=== PATIENT | male | born 1975 | race Caucasian/White ===

== ENCOUNTER 2016-08-19 06:41 | Observation (INO) | payer BC ==
[2016-08-19 08:03] LABS: ABSOLUTE LYMPHOCYTES (AUTO) 1.5 10^3/uL (0.5-4.7); ABSOLUTE MONOCYTES (AUTO) 0.8 10^3/uL (0.1-1.4); ABSOLUTE NEUT (AUTO) 6.6 10^3/uL (1.7-8.2); BASOPHILS % (AUTO) 0.3 % (0-2); EOSINOPHILS % (AUTO) 0.5 % (0-6); HEMATOCRIT 42.7 % (37.9-51.0); HEMOGLOBIN 14.9 g/dL (13.5-17.0); LYMPHOCYTES % (AUTO) 16.9 % (13-45); MEAN CORPUSCULAR HEMOGLOBIN 30.4 pg (27.0-33.4); MEAN CORPUSCULAR HGB CONC 34.8 g/dL (32.0-36.0); MEAN CORPUSCULAR VOLUME 87 fl (80-97); MONOCYTES % (AUTO) 9.1 % (3-13); RED BLOOD COUNT 4.89 10^6/uL (4.35-5.55); SEGMENTED NEUTROPHILS % (AUTO) 73.2 % (42-78); WHITE BLOOD COUNT 9.1 10^3/uL (4.0-10.5)
[2016-08-19 08:05] LABS: APPEARANCE,URINE CLEAR; BILIRUBIN,URINE NEGATIVE (NEGATIVE); GLUCOSE, URINE NEGATIVE (NEGATIVE); KETONES,URINE NEGATIVE (NEGATIVE); LEUKOCYTE ESTERASE,URINE NEGATIVE (NEGATIVE); NITRITE,URINE NEGATIVE (NEGATIVE); PROTEIN,URINE NEGATIVE (NEGATIVE); URINE SPECIFIC GRAVITY 1.016; UROBILINOGEN,URINE NEGATIVE mg/dL (<2.0)
[2016-08-19 08:16] LABS: ALANINE AMINOTRANSFERASE 50 U/L (21-72); ALBUMIN 4.7 g/dL (3.5-5.0); ALKALINE PHOSPHATASE 85 U/L (38-126); ANION GAP 15 (5-19); ASPARTATE AMINO TRANSFERASE 25 U/L (17-59); BILIRUBIN,DIRECT 0.4 mg/dL (0.0-0.4); BILIRUBIN,TOTAL 1.2 mg/dL (0.2-1.3); BLOOD UREA NITROGEN 15 mg/dL (7-20); CALCIUM 9.5 mg/dL (8.4-10.2); CARBON DIOXIDE 23 mmol/L (22-30); CHLORIDE 105 mmol/L (98-107); CREATININE RESULT 1.27 mg/dL (0.52-1.25); GLUCOSE 111 mg/dL (75-110); LIPASE 63.9 U/L (23-300); POTASSIUM 4.3 mmol/L (3.6-5.0); SODIUM 142.6 mmol/L (137-145); TOTAL PROTEIN 7.9 g/dL (6.3-8.2)
[2016-08-19] MEDS ORDERED: ONDANSETRON HCL INJ/PF 4 MG/2 ML SDV IV ONE (08:28)
[2016-08-19] MEDS ORDERED: NORMAL SALINE 500 ML IV ONE (08:28)
[2016-08-19] MEDS ORDERED: NORMAL SALINE 1000 ML 1,000 ML IV ONE (08:28)
--- NOTE | 2016-08-19 08:29 | ER Document Report ---
ED General - General Chief Complaint: Abdominal Pain Stated Complaint: ABDOMINAL PAIN TRAVEL OUTSIDE OF THE [place] IN LAST 30 DAYS: No - Related Data Allergies/Adverse Reactions: Sulfa (Sulfonamide Antibiotics) Allergy (Verified 08/19/16 08:16) Home Medications: Current Home Medications Citalopram Hydrobromide [Celexa 10 mg Tablet] 10 mg PO DAILY 08/19/16 [History] Past Medical History - Social History Smoking Status: Never Smoker Frequency of alcohol use: Social Drug Abuse: None Patient has suicidal ideation: No Patient has homicidal ideation: No Renal/ Medical History: Denies: Hx Peritoneal Dialysis Surgical Hx: Negative Physical Exam - Vital signs Vitals: Temp Pulse Resp BP Pulse Ox 97.9 F 101 H 18 123/84 97 08/19/16 06:44 08/19/16 06:44 08/19/16 06:44 08/19/16 06:44 08/19/16 06:44 Course - Re-evaluation Re-evalutation: 08/19/16 08:29 This coming right lower quadrant tenderness with rebound and voluntary guarding no obturator so asked sign. There is no blood in the urine patient states he has a kidney stone in the past does not feel like his kidney stones. Examination is concerning for possible acute appendicitis. Discussed with surgeon on-call recommends getting a CT scan this time with oral and IV contrast. - Vital Signs Vital signs: Temp Pulse Resp BP Pulse Ox 97.9 F 101 H 20 123/84 97 08/19/16 06:44 08/19/16 06:44 08/19/16 08:00 08/19/16 06:44 08/19/16 06:44 - Laboratory Result Diagrams: 08/19/16 07:42 08/19/16 07:42 Laboratory results interpreted by me: 08/19/16 07:42 Creatinine 1.27 H Glucose 111 H
[2016-08-19] MEDS ORDERED: GLYCOPYRROLATE INJ 0.4 MG/2 ML VIAL ONE (08:30)
[2016-08-19] MEDS ORDERED: NEOSTIGMINE METHYLSULFATE 10 MG/10 ML VIAL ONE (08:30)
[2016-08-19] MEDS ORDERED: METOCLOPRAMIDE HCL INJ/PF 10 MG/2 ML SDV ONE (08:30)
[2016-08-19] MEDS ORDERED: ROCURONIUM BROMIDE INJ 50 MG/5 ML VIAL IV ONE (08:30)
[2016-08-19] MEDS ORDERED: ONDANSETRON HCL INJ/PF 4 MG/2 ML SDV ONE (08:30)
[2016-08-19] MEDS ORDERED: SUCCINYLCHOLINE CHLORIDE INJ 200 MG/10 ML VIAL ONE (08:30)
--- NOTE | 2016-08-19 09:12 | ER Document Report ---
ED General - General Chief Complaint: Abdominal Pain Stated Complaint: ABDOMINAL PAIN TRAVEL OUTSIDE OF THE [place] IN LAST 30 DAYS: No - HPI Patient complains to provider of: right lower quadrant abdominal pain Notes: Patient coming in for evaluation of right lower quadrant abdominal pain. Patient states abdominal pain for last 3 days initially diffuse now is localized to the right lower quadrant. Patient denies fevers vomiting diarrhea last bowel movement was this morning it was normal. Patient does states she did have chills night prior to arrival he has had pain right lower quadrant with the drive over stating that all the bumps he had because pain. Patient denies any pain with walking. Patient still does have his appendix and gallbladder patient denies any previous abdominal surgery. Upon my evaluation patient is afebrile in no obvious distress - Related Data Allergies/Adverse Reactions: Sulfa (Sulfonamide Antibiotics) Allergy (Verified 08/19/16 08:16) Home Medications: Current Home Medications Citalopram Hydrobromide [Celexa 10 mg Tablet] 10 mg PO DAILY 08/19/16 [History] Past Medical History - Social History Smoking Status: Never Smoker Frequency of alcohol use: Social Drug Abuse: None Family History: Reviewed & Not Pertinent Patient has suicidal ideation: No Patient has homicidal ideation: No Renal/ Medical History: Denies: Hx Peritoneal Dialysis Surgical Hx: Negative Review of Systems - Review of Systems Constitutional: No symptoms reported EENT: No symptoms reported Cardiovascular: No symptoms reported Respiratory: No symptoms reported Gastrointestinal: Abdominal pain Genitourinary: No symptoms reported Male Genitourinary: No symptoms reported Musculoskeletal: No symptoms reported Skin: No symptoms reported Hematologic/Lymphatic: No symptoms reported Neurological/Psychological: No symptoms reported -: Yes All other systems reviewed and negative Physical Exam - Vital signs Vitals: Temp Pulse Resp BP Pulse Ox 97.9 F 101 H 18 123/84 97 08/19/16 06:44 08/19/16 06:44 08/19/16 06:44 08/19/16 06:44 08/19/16 06:44 Interpretation: Normal - General General appearance: Appears well, Alert - HEENT Head: Normocephalic, Atraumatic Eyes: Normal Pupils: PERRL - Respiratory Respiratory status: No respiratory distress Chest status: Nontender Breath sounds: Normal Chest palpation: Normal - Cardiovascular Rhythm: Regular Heart sounds: Normal auscultation Murmur: No - Abdominal Inspection: Normal Distension: No distension Bowel sounds: Normal Tenderness: Tender, McBurney's point, Guarding, Rebound. No: Urrutia's sign Organomegaly: No organomegaly - Back Back: Normal, Nontender - Extremities General upper extremity: Normal inspection, Nontender, Normal color, Normal ROM , Normal temperature General lower extremity: Normal inspection, Nontender, Normal color, Normal ROM , Normal temperature, Normal weight bearing. No: Markus's sign - Neurological Neuro grossly intact: Yes Cognition: Normal Orientation: AAOx4 [place] Coma Scale Eye Opening: Spontaneous [place] Coma Scale Verbal: Oriented [place] Coma Scale Motor: Obeys Commands [place] Coma Scale Total: 15 Speech: Normal Motor strength normal: LUE, RUE, LLE, RLE Sensory: Normal - Psychological Associated symptoms: Normal affect, Normal mood - Skin Skin Temperature: Warm Skin Moisture: Dry Skin Color: Normal Course - Re-evaluation Re-evalutation: 08/19/16 08:29 This coming right lower quadrant tenderness with rebound and voluntary guarding no obturator so asked sign. There is no blood in the urine patient states he has a kidney stone in the past does not feel like his kidney stones. Examination is concerning for possible acute appendicitis. Discussed with surgeon on-call recommends getting a CT scan this time with oral and IV contrast. 08/19/16 09:12 Patient's lab work returned showing a leukocytosis however patient examination with rebound and voluntary guarding in the right lower quadrant is concerning for acute appendicitis. He did contact surgeon on-call and did relate patient' s examination laboratory results. States that he would like a CT scan with IV and oral contrast. Patient was given IV fluids made nothing by mouth CT scan ordered 08/19/16 11:02 08/19/16 12:53 Notified by the radiologist patient has an acute appendicitis. Notified the surgeon on-call. Patient will be given a dose of Unasyn - Vital Signs Vital signs: Temp Pulse Resp BP Pulse Ox 97.6 F 78 16 128/61 H 97 08/19/16 10:44 08/19/16 10:44 08/19/16 10:44 08/19/16 10:44 08/19/16 10:44 - Laboratory Result Diagrams: 08/19/16 07:42 08/19/16 07:42 Laboratory results interpreted by me: 08/19/16 07:42 Creatinine 1.27 H Glucose 111 H Discharge - Discharge Clinical Impression: Acute appendicitis Qualifiers: Acute appendicitis type: with localized peritonitis Qualified Code(s): K35.3 - Acute appendicitis with localized peritonitis Condition: Good Disposition: ADMITTED INPATIENT Admitting Provider: Surgicalist - [facility] Admitted: OR Referrals: LAZARO EMERSON FIELD UNDERWRITER-C [Primary Care Provider] - Follow up as needed
[2016-08-19] MEDS ORDERED: AMPICILLIN SOD/SULBACTAM 3 GM VIAL IV ONE (11:29)
--- NOTE | 2016-08-19 12:38 | HISTORY AND PHYSICAL E ---
History and Physical NAME: CELESTINA CONNER : 1975 AGE: 40Y ADMITTED: 08/19/2016 ROOM: CHIEF COMPLAINT: Abdominal pains. HISTORY OF PRESENT ILLNESS: This is a 40-year-old male who complains of generalized abdominal pains about 2 days ago. Last night the pains localized in the right lower quadrant. This was associated with chills last night. Denies nausea, vomiting, diarrhea, constipation, dysuria or fever. REVIEW OF SYSTEMS: As in HPI. Also takes Celexa for anxiety. The rest of the systems are unremarkable. ALLERGIES: SULFA. SOCIAL HISTORY: Smokes about a cigar a day. Drinks socially. Denies drug use. FAMILY HISTORY: Noncontributory. PHYSICAL EXAMINATION: GENERAL: Well-developed, somewhat overweight white male, alert and oriented, complaining of right lower quadrant pain. NECK: Supple. No thyromegaly. LUNGS: Clear. HEART: Regular sinus rhythm. ABDOMEN: Soft with tenderness in the right lower quadrant. EXTREMITIES: No edema. IMPRESSION: Acute appendicitis. LABORATORY STUDIES: The patient had a CAT scan of the abdomen with contrast which showed acute appendicitis. DICTATING PHYSICIAN: MOHAMUD TALBERT M.D. [id number] PHY#: [id number] ID: [id number] JOB#: [id number] ACCT: [id number] cc: >
[2016-08-19] MEDS ORDERED: BUPIVACAINE HCL 0.25 % INJ/PF (2.5 MG/1 ML) 30 ML VIAL ONE (13:22)
[2016-08-19] MEDS ORDERED: PROPOFOL INJ 200 MG/20 ML VIAL IV ONE (13:42)
[2016-08-19] MEDS ORDERED: MORPHINE SULFATE 10 MG/ML INJ ONE (13:42)
[2016-08-19] MEDS ORDERED: FENTANYL CITRATE INJ/PF 250 MCG/5 ML AMPULE ONE (13:42)
[2016-08-19] MEDS ORDERED: MIDAZOLAM 2 MG/2 ML INJ ONE (13:42)
[2016-08-19] MEDS ORDERED: ACETAMINOPHEN 100 ML IV ONE (13:42)
[2016-08-19] MEDS: FENTANYL CITRATE INJ/PF 100 MCG/2 ML AMPUL ONE ×3 (16:03→16:15)
--- NOTE | 2016-08-19 17:28 | OPERATIVE REPORT E ---
Operative Report NAME: CELESTINA CONNER : 1975 AGE: 40Y DATE OF SURGERY: 08/19/2016 ROOM: ED09 PREOPERATIVE DIAGNOSIS: Acute appendicitis. POSTOPERATIVE DIAGNOSIS: Acute appendicitis. OPERATION: Laparoscopic appendectomy. SURGEON: MOHAMUD TALBERT M.D. ANESTHESIA: General. INDICATION: This is a 40-year-old male with right lower quadrant pains, at least since last night. A CAT scan of the abdomen revealed acute appendicitis. DESCRIPTION OF PROCEDURE: After adequate general anesthesia and an appropriate timeout, the abdomen was then prepped and draped in the usual sterile fashion. A small infraumbilical longitudinal incision was made and the fascia identified. It was subsequently opened and a Neil trocar inserted into the abdominal cavity. The Neil trocar was inserted and CO2 insufflated up to a pressure of 15 mmHg. Next, two other trocars were placed, 5 mm in the suprapubic area and 12 mm in the left lower quadrant. Next, the appendix and the cecum was identified but noted to be diving down into the posterior sacral area. Because of this, the base of the appendix was subsequently stapled and divided with an Endo-ISABEL. Next, the appendix was subsequently dissected bluntly with the use of a harmonic. Dissection was quite difficult because the appendix was really adherent and also part of the sacrum and the ileum plastered to the abdominal wall. Blunt dissection and use of a harmonic was used to release some of the adhesions. Finally, the appendix was noted to be more inflamed at the distal end, was subsequently removed with the use of harmonic. Appendix was placed in an Endobag and pulled out through the left lower quadrant port site. Next, the appendiceal area was nicely irrigated, and no evidence of active bleeding noted. All the trocars were then removed and CO2 allowed to come out of the trocar sites. The infraumbilical fascial defect was then closed with a single [id number] suture using #0-Vicryl. All the skin incisions closed with running subcuticular closure using 4-0 Vicryl undyed. Dermabond was used as a dressing. The patient tolerated the procedure well. Needle, instrument, and sponge counts were all correct. Estimated blood loss was minimal. The patient was then brought to the PACU in satisfactory condition. DICTATING PHYSICIAN: MOHAMUD TALBERT M.D. [id number] [id number] PHY#: [id number] ID: [id number] JOB#: [id number] ACCT: [id number] cc:MOHAMUD TALBERT M.D. >
[2016-08-19] MEDS ORDERED: OXYCODONE-ACETAMINOPHEN 5-325 MG TABLET PO PRN (18:13)
[2016-08-19] MEDS ORDERED: NORMAL SALINE 1000 ML 1,000 ML IV PRN (18:13)
[2016-08-19] MEDS: AMPICILLIN SODIUM/SULBACTAM NA 3 GM in NORMAL SALINE 100 ML IV SCH (21:30)
[2016-08-19] MEDS: HYDROMORPHONE HCL INJ/PF 2 MG/ML AMPULE IV PRN (22:54)
[2016-08-20 05:07] LABS: HEMATOCRIT 36.5 % (37.9-51.0); HGB HCT DIFFERENCE 1.9; MEAN CORPUSCULAR HEMOGLOBIN 30.5 pg (27.0-33.4); MEAN CORPUSCULAR VOLUME 87 fl (80-97); RED BLOOD COUNT 4.18 10^6/uL (4.35-5.55); RED CELL DISTRIBUTION WIDTH 13.1 % (11.5-14.0)
[2016-08-20 05:09] LABS: HEMOGLOBIN 12.8 g/dL (13.5-17.0)
[2016-08-20 05:20] LABS: ANION GAP 11 (5-19); BLOOD UREA NITROGEN 12 mg/dL (7-20); CALCIUM 8.5 mg/dL (8.4-10.2); CARBON DIOXIDE 24 mmol/L (22-30); CHLORIDE 106 mmol/L (98-107); CREATININE RESULT 1.21 mg/dL (0.52-1.25); GLUCOSE 93 mg/dL (75-110); SODIUM 140.7 mmol/L (137-145)
[2016-08-20] MEDS: AMPICILLIN SODIUM/SULBACTAM NA 3 GM in NORMAL SALINE 100 ML IV SCH ×2 (05:32→13:24)
[2016-08-20] MEDS: HYDROMORPHONE HCL INJ/PF 2 MG/ML AMPULE IV PRN (05:33)
[2016-08-20 11:35] VITALS: BP 126/84
--- NOTE | 2016-08-20 12:13 | OPERATIVE REPORT E ---
Operative Report NAME: CELESTINA CONNER : 1975 AGE: 40Y DATE OF SURGERY: 08/19/2016 ROOM: 531 PREOPERATIVE DIAGNOSIS: Acute appendicitis. POSTOPERATIVE DIAGNOSIS: Acute appendicitis. OPERATION: Laparoscopic appendectomy. SURGEON: MOHAMUD TALBERT M.D. ANESTHESIA: General. INDICATION: This is a 40-year-old male complaining of abdominal pain for the past 2 days and worse last night when it localized in the right lower quadrant. This was associated with nausea. Denies any diarrhea, constipation, or vomiting. No dysuria. REVIEW OF SYSTEMS: As in HPI. Right lower quadrant pains and nausea. The rest of the systems unremarkable. He takes Celexa for his nerves. MEDICATIONS: Just the Celexa. SOCIAL HISTORY: Denies smoking. Drinks socially. No recreational drug use. ALLERGIES: None known. DICTATING PHYSICIAN: MOHAMUD TALBERT M.D. [id number] PHY#: [id number] ID: [id number] JOB#: [id number] ACCT: [id number] cc:MOHAMUD TALBERT M.D. >
--- NOTE | 2016-08-20 18:43 | DISCHARGE SUMMARY E ---
Discharge Summary NAME: CELESTINA CONNER : 1975 AGE: 40Y ADMITTED: 08/19/2016 DISCHARGED: 08/20/2016 FINAL DIAGNOSIS: Acute appendicitis. SUMMARY: This is a 40-year-old male who came in with abdominal pains and CAT scan revealed acute appendicitis. He then underwent laparoscopic appendectomy on 08/19/16. Today, 08/20/16, he feels better with no fever and tolerating diet well. He is being discharged today, 08/20/16, on p.o. Percocet p.r.n. for severe pain and Motrin p.r.n. for less pain. He will be followed in the surgical clinic in about a week or two. He is to avoid heavy lifting more than 10 pounds for the next 2 weeks and no more than 20 pounds for the next 2 other weeks. A formal return to work will be given at the clinic. DICTATING PHYSICIAN: MOHAMUD TALBERT M.D. [id number] PHY#: [id number] ID: [id number] JOB#: [id number] ACCT: [id number] cc:MOHAMUD TALBERT M.D. >
== END 2016-08-20 14:59 | disposition home or self-care (01) ==
LOC: ER 06:41 → INTOOBSV 13:02 → EH 13:02 → 5 17:31
PROC: 0DNH4ZZ Release Cecum, Percutaneous Endoscopic Approach (ICD-10-PCS; 2016-08-19)
PROC: 0DNJ4ZZ Release Appendix, Percutaneous Endoscopic Approach (ICD-10-PCS; 2016-08-19)
PROC: 0DTJ4ZZ Resection of Appendix, Percutaneous Endoscopic Approach (ICD-10-PCS; principal; 2016-08-19 14:00)
DX: K35.3 Acute appendicitis with localized peritonitis (principal); K66.0 Peritoneal adhesions (postprocedural) (postinfection); F41.9 Anxiety disorder, unspecified; Z72.0 Tobacco use; Z79.899 Other long term (current) drug therapy
CPT/HCPCS: 99285; 96361; 96374; 96375; 36415 ×2; 83690; 85025; 85027; 80048; 80053; 81001; 88304 ×2; 74177; 44970; 49329; J2250; J3490; J3010 ×2; J0295 ×2; J2765; J2270; J1170 ×2; J0330; J2405; J7030; J7040; J2704; J0131; 840

== ENCOUNTER 2016-12-26 21:52 | Emergency (ER) | payer BC ==
[2016-12-26 22:09] VITALS: BP 144/94
[2016-12-26] MEDS ORDERED: LIDOCAINE 1% INJ-PF (10 MG/ML) 30 ML SDV INJ ONE (22:18)
--- NOTE | 2016-12-26 22:19 | ER Document Report ---
ED General - General Chief Complaint: Abscess Stated Complaint: POSSIBLE ABSCESS Time Seen by Provider: 12/26/16 22:18 Mode of Arrival: Ambulatory Information source: Patient Notes: 41-year-old male presents with complaints of abscess to his back. Patient notes symptoms have worsened over the past few days. Patient has had one previous abscess in the past. Denies any fevers or chills TRAVEL OUTSIDE OF THE [place] IN LAST 30 DAYS: No - HPI Onset: Other - 4 day duration Onset/Duration: Worse Quality of pain: Achy Severity: Mild Pain Level: 1 Associated symptoms: Other Exacerbated by: Denies Relieved by: Denies Similar symptoms previously: Yes Recently seen / treated by doctor: No - Related Data Allergies/Adverse Reactions: Sulfa (Sulfonamide Antibiotics) Allergy (Verified 08/19/16 08:16) Past Medical History - Social History Smoking Status: Current Every Day Smoker Cigarette use (# per day): No - Cigars Chew tobacco use (# tins/day): No Smoking Education Provided: No Family History: Reviewed & Not Pertinent Patient has suicidal ideation: No Patient has homicidal ideation: No Renal/ Medical History: Denies: Hx Peritoneal Dialysis Psychiatric Medical History: Reports: Hx Depression Review of Systems - Review of Systems Notes: REVIEW OF SYSTEMS: CONSTITUTIONAL : Denies fever, chills, or sweats. Denies recent illness. EENT: Denies eye, ear, throat, or mouth pain or symptoms. Denies nasal or sinus congestion or discharge. Denies throat, tongue, or mouth swelling or difficulty swallowing. CARDIOVASCULAR: Denies chest pain. Denies palpitations or racing or irregular heart beat. Denies ankle edema. RESPIRATORY: Denies cough, cold, or chest congestion. Denies shortness of breath, difficulty breathing, or wheezing. GASTROINTESTINAL: Denies abdominal pain or distention. Denies nausea, vomiting , or diarrhea. Denies blood in vomitus, stools, or per rectum. Denies black, tarry stools. Denies constipation. GENITOURINARY: Denies difficulty urinating, painful urination, burning, frequency, blood in urine, or discharge. MUSCULOSKELETAL: Denies back or neck pain or stiffness. Denies joint pain or swelling. SKIN: Abscess HEMATOLOGIC : Denies easy bruising or bleeding. LYMPHATIC: Denies swollen, enlarged glands. NEUROLOGICAL: Denies confusion or altered mental status. Denies passing out or loss of consciousness. Denies dizziness or lightheadedness. Denies headache. Denies weakness or paralysis or loss of use of either side. Denies problems with gait or speech. Denies sensory loss, numbness, or tingling. Denies seizures. PSYCHIATRIC: Denies anxiety or stress. Denies depression, suicidal ideation, or homicidal ideation. ALL OTHER SYSTEMS REVIEWED AND NEGATIVE. Dictation was performed using [employer] voice recognition software PHYSICAL EXAMINATION: GENERAL: Well-appearing, well-nourished and in no acute distress. HEAD: Atraumatic, normocephalic. EYES: Pupils equal round and reactive to light, extraocular movements intact, sclera anicteric, conjunctiva are normal. ENT: Nares patent, oropharynx clear without exudates. Moist mucous membranes. NECK: Normal range of motion, supple without lymphadenopathy LUNGS: Breath sounds clear to auscultation bilaterally and equal. No wheezes rales or rhonchi. HEART: Regular rate and rhythm without murmurs ABDOMEN: Soft, nontender, nondistended abdomen. No guarding, no rebound. No masses appreciated. Musculoskeletal: Normal range of motion, no pitting or edema. No cyanosis. NEUROLOGICAL: Cranial nerves grossly intact. Normal speech, normal gait. Normal sensory, motor exams PSYCH: Normal mood, normal affect. SKIN: 2 x 2 centimeter abscess on the back at the T4-T5 region Physical Exam - Vital signs Vitals: Temp Pulse Resp BP Pulse Ox 97.6 F 89 18 144/94 H 96 12/26/16 22:06 12/26/16 22:06 12/26/16 22:06 12/26/16 22:06 12/26/16 22:06 Course - Re-evaluation Re-evalutation: 12/26/16 22:39 Area was anesthetized and incised thick pus was removed area was explored patient will be started on Keflex has history of allergy to Bactrim After performing a Medical Screening Examination, I estimate there is LOW risk for OPEN FRACTURE, COMPARTMENT SYNDROME, TENDON RUPTURE, ACUTE NEUROVASCULAR INJURY, or RETAINED FOREIGN BODY, thus I consider the discharge disposition reasonable. Also, there is no evidence or peritonitis, sepsis, or toxicity. I have reevaluated this patient multiple times and no significant life threatening changes are noted. The patient and I have discussed the diagnosis and risks, and we agree with discharging home with close follow-up with the understanding that symptoms and presentations can change. We also discussed returning to the Emergency Department immediately if new or worsening symptoms occur. We have discussed the symptoms which are most concerning (e.g., changing or worsening pain, fever, numbness, weakness, cool or painful digits) that necessitate immediate return. - Vital Signs Vital signs: Temp Pulse Resp BP Pulse Ox 97.6 F 89 18 144/94 H 96 12/26/16 22:06 12/26/16 22:06 12/26/16 22:06 12/26/16 22:06 12/26/16 22:06 Procedures - Incision and Drainage Mid- Back Time completed: 22:40 Type: Simple Anesthetic type: 1% Lidocaine mL's of anesthetic: 5 Blade size: 11 I&D procedure: Betadine prep applied, Sterile dressing applied Incision Method: Incision made by scalpel Amount/type of drainage: Thick drainage Discharge - Discharge Clinical Impression: Abscess Condition: Stable Disposition: HOME, SELF-CARE Instructions: Abscess ([facility]), Post Incision and Drainage Additional Instructions: Follow up with your physician tomorrow for further care or return to the ED IMMEDIATELY if symptoms worsen or new concerns occur. If you cannot afford to follow up with your primary care physician a list of low cost clinics have been provided at the end of your discharge papers as well. Prescriptions: Cephalexin Monohydrate [Keflex 500 mg Capsule] 500 mg PO QID #40 capsule
== END 2016-12-26 22:47 | disposition home or self-care (01) ==
LOC: ER 21:52
PROC: 0H96XZZ Drainage of Back Skin, External Approach (ICD-10-PCS; principal; 2016-12-26)
DX: L02.212 Cutaneous abscess of back [any part, except buttock and flank] (principal); F17.290 Nicotine dependence, other tobacco product, uncomplicated; Z88.0 Allergy status to penicillin
CPT/HCPCS: 99283; 10060; J3490

== ENCOUNTER 2018-11-01 11:49 | Emergency (ER) | payer BC ==
[2018-11-01] MEDS ORDERED: OXYCODONE-ACETAMINOPHEN 5-325 MG TABLET PO ONE (13:05)
--- NOTE | 2018-11-01 13:06 | ER Document Report ---
ED Medical Screen (RME) - General Chief Complaint: Weakness Stated Complaint: RIGHT ARM WEAKNESS Time Seen by Provider: 11/01/18 12:53 Primary Care Provider: TITO VAUGHN FNP-C [Primary Care Provider] - Follow up as needed Mode of Arrival: Ambulatory Information source: Patient Notes: Patient presents with pain and weakness to right upper extremity. Patient is right-hand dominant. Patient states he started to develop upper back pain 4 days ago. Patient denies any traumatic injury. No fever. I have greeted and performed a rapid initial assessment of this patient. A comprehensive ED assessment and evaluation of the patient, analysis of test results and completion of the medical decision making process will be conducted by additional ED providers. TRAVEL OUTSIDE OF THE [place] 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
--- NOTE | 2018-11-01 14:47 | RADIOLOGY REPORT (SQ) ---
EXAM DESCRIPTION: MRI CERVICAL SPINE WITHOUT COMPLETED DATE/TIME: 11/01/2018 2:33 pm REASON FOR STUDY: RUE pain, weakness COMPARISON: None. TECHNIQUE: Sagittal and Axial imaging includes T1, T2, STIR and gradient echo sequences. LIMITATIONS: Patient movement. FINDINGS: ALIGNMENT: Straightening of lordotic curve. VERTEBRAE: Intact. BONE MARROW: Normal. No marrow replacement or reactive changes. DISCS: Desiccation multiple levels. HARDWARE: None in the spine. CORD AND BASE OF BRAIN: Normal in size and signal intensity. SOFT TISSUES: No soft tissue masses. C1-C2: No significant spinal stenosis. C2-C3: No significant spinal stenosis or exit foraminal stenosis. C3-C4: Disc bulge. Uncovertebral arthropathy. Minimal narrowing of the spinal canal. Moderate bila teral neural foraminal stenosis. C4-C5: Mild right neural foraminal narrowing. C5-C6: No significant stenosis. C6-C7: No significant stenosis. C7-T1: No significant stenosis. UPPER THORACIC: See separate report of the same date. OTHER: No other significant finding. IMPRESSION: Neural foraminal stenosis. No evidence of acute disc herniation or cord compression. TECHNICAL DOCUMENTATION: JOB ID: [id number] [employer]- All Rights Reserved Reading location - IP/workstation name: [email or web address]
--- NOTE | 2018-11-01 14:49 | RADIOLOGY REPORT (SQ) ---
EXAM DESCRIPTION: MRI THORACIC SPINE WITHOUT COMPLETED DATE/TIME: 11/01/2018 2:33 pm REASON FOR STUDY: RUE pain, weakness COMPARISON: None. TECHNIQUE: Sagittal and Axial imaging includes T1, T2, STIR and gradient echo sequences. LIMITATIONS: None. FINDINGS: LOCALIZER: No worrisome findings. ALIGNMENT: Normal. VERTEBRAE: Intact. BONE MARROW: Mild reactive edema inferior endplates T 8, T9 and T11. HARDWARE: None in the spine. CORD: Normal in size and signal intensity. SOFT TISSUES: No soft tissue masses. THORACIC DISCS T1-T12: Mild degenerative disc disease at multiple levels. No evidence of acute disc herniation or cord compression. LOWER CERVICAL: See separate report. UPPER LUMBAR: Incompletely imaged. No significant spinal stenosis or exit foraminal stenosis. OTHER: No other significant finding. IMPRESSION: No acute findings. TECHNICAL DOCUMENTATION: JOB ID: [id number] [employer]- All Rights Reserved Reading location - IP/workstation name: [email or web address]
[2018-11-01] MEDS ORDERED: KETOROLAC TROMETHAMINE 60 MG/2 ML SDV IM ONE (15:13)
--- NOTE | 2018-11-01 15:19 | ER Document Report ---
ED General - General Chief Complaint: Weakness Stated Complaint: RIGHT ARM WEAKNESS Time Seen by Provider: 11/01/18 12:53 Primary Care Provider: TITO VAUGHN FNP-C [Primary Care Provider] - Follow up as needed Mode of Arrival: Ambulatory TRAVEL OUTSIDE OF THE [place] IN LAST 30 DAYS: No - HPI Notes: Patient is a 43-year-old male with no significant past medical history, [id number], who presents complaining of pain near the right medial scapular border that is worse when it is pushed on and since a sharp pain down his right arm. 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 Patient states that he will wake up in the middle the night and his hand will feel like it "fell asleep." Patient states that he does do a lot with his hands. He otherwise has been acting behaving normally. He is eating and drinking without difficulty. He is urinating normally and having normal bowel movements. Denies any headache, fever, head injury, neck pain, changes in vision/speech/mentation/hearing, URI, sore throat, chest pain, palpitations, syncope, cough, shortness of breath, wheeze, dyspnea, abdominal pain, nausea/vomiting/diarrhea, urinary retention, dysuria, hematuria, loss of control of bowel or bladder, saddle anesthesia, muscle paralysis, or rash. - Related Data Allergies/Adverse Reactions: Sulfa (Sulfonamide Antibiotics) Allergy (Verified 11/01/18 11:52) Past Medical History - General Information source: Patient - Social History Smoking Status: Current Every Day Smoker Frequency of alcohol use: None Drug Abuse: None Family History: Reviewed & Not Pertinent Patient has suicidal ideation: No Patient has homicidal ideation: No Renal/ Medical History: Denies: Hx Peritoneal Dialysis Psychiatric Medical History: Reports: Hx Depression Past Surgical History: Reports: Hx Appendectomy, Hx Orthopedic Surgery - left finger Review of Systems - Review of Systems -: Yes All other systems reviewed and negative Physical Exam - Vital signs Vitals: Temp Pulse Resp BP Pulse Ox 97.7 F 82 16 150/100 H 96 11/01/18 11:58 11/01/18 11:58 11/01/18 11:58 11/01/18 11:58 11/01/18 11:58 - Notes Notes: PHYSICAL EXAMINATION: GENERAL: Well-appearing, well-nourished and in no acute distress. A&Ox4. Answers questions appropriately. HEAD: Atraumatic, normocephalic. Non-tender. EYES: Pupils equal round and reactive to light, extraocular movements intact, sclera anicteric, conjunctiva are normal. No nystagmus. vis alvarez intact. ENT: Nares patent and without discharge. oropharynx clear without exudates. No tonsilar hypertrophy or erythema. Moist mucous membranes. NECK: Normal range of motion, supple without lymphadenopathy. No rigidity/meningismus. No midline tenderness. Spurling negative b/l. LUNGS: Breath sounds clear to auscultation bilaterally and equal. No wheezes rales or rhonchi. HEART: Regular rate and rhythm without murmurs, rubs, gallops. ABDOMEN: Soft, nontender, nondistended abdomen. No guarding, no rebound. Normal bowel sounds present. No CVA tenderness bilaterally. Musculoskeletal: Ext's b/l: FROM to passive/active. Strength 5+/5. No deficits noted. No bony tenderness of extremities. + tinel/phalen of rt wrist, reproduces symptoms. Back: FROM to passive/active. Strength 5+/5. No vertebral point tenderness, stepoffs, or deformities. No other bony tenderness, erythema, swelling, or ecchymosis. SLR negative b/l. + trigger point and reproducible symptoms to palp rt parathoracic muscle/medial scapular area. No SI jt tenderness. No foot drop Extremities: No cyanosis, clubbing, or edema b/l. Peripheral pulses 2+. Capillary refill less than 2 seconds. NEUROLOGICAL: NIH 0. GCS 15. Cranial nerves grossly intact. Normal speech, normal gait. Normal sensory, motor exams. Reflexes 2+ b/l. VINCE's negative. Pronator drift negative. Heel/mejía, finger/nose wnl. PSYCH: Normal mood, normal affect. SKIN: Warm, Dry, normal turgor, no rashes or lesions noted. Course - Re-evaluation Re-evalutation: 11/01/18 15:17 Patient is an afebrile, well-hydrated, 43-year-old male who presents to the ED with right thoracic back pain/trigger point and suspected carpal tunnel syndrome right wrist/hand. Vitals are acceptable. PE is otherwise unremarkable for any focal neurological deficits. Patient symptoms are reproducible by palpation and Tinel's/Phalen. MRI's ordered through triage, see report. Patient was given Toradol. He has no significant tachycardia, tachypnea, or hypoxia. He is nontoxic-appearing and is tolerating p.o. without difficulties. There are no signs of infection. No other red flag symptoms noted. No other labs or imaging warranted at this time based on H&P. Low suspicion for any meningitis, fracture, expanding/ruptured AAA, cauda equina syndrome, epidural mass lesion/abscess, herniated disc causing severe spinal stenosis, or other systemic infection at this time. Patient is aware that his condition can change from initial presentation and that he needs monitor symptoms closely for any acute changes. Conservative measures otherwise for symptoms. Recheck with your PCM in 3-5 days. Consider consult with orthopedic/physical therapy. Return to the ED with any worsening/concerning symptoms otherwise as reviewed discharge. Patient is in agreement. - Vital Signs Vital signs: Temp Pulse Resp BP Pulse Ox 97.7 F 82 16 150/100 H 96 11/01/18 11:58 11/01/18 12:20 11/01/18 12:20 11/01/18 12:20 11/01/18 12:20 Discharge - Discharge Clinical Impression: Carpal tunnel syndrome of right wrist Right-sided thoracic back pain Qualifiers: Chronicity: acute Qualified Code(s): M54.6 - Pain in thoracic spine Condition: Stable Disposition: HOME, SELF-CARE Instructions: Carpal Tunnel Syndrome ([facility]) Additional Instructions: Rest, Ice, compression, elevation Tylenol/ibuprofen as needed Light stretches daily Strength exercises as able Moist heat and massage may help F/u with your PCP in 3-5 days for a recheck Consider consult(s) with Orthopedics/physical therapy for ongoing/worsening symptoms Return to the ED with any worsening symptoms and/or development of fever, headache, chest pain, palpitations, syncope, shortness of breath, trouble breathing, abdominal pain, n/v/d, blood in stool/urine, loss of control of bowel/bladder, urinary retention, muscle weakness/paralysis, saddle anesthesia, numbness/tingling, or other worsening symptoms that are concerning to you. Forms: Elevated Blood Pressure, Smoking Cessation Education Referrals: TITO VAUGHN FNP-C [Primary Care Provider] - Follow up as needed [facility] [Provider Group] - Follow up as needed
[2018-11-01 15:37] VITALS: BP 140/92
== END 2018-11-01 15:45 | disposition home or self-care (01) ==
LOC: ER 11:49
DX: G56.01 Carpal tunnel syndrome, right upper limb (principal); M54.6 Pain in thoracic spine; R53.1 Weakness; F17.200 Nicotine dependence, unspecified, uncomplicated; Z88.2 Allergy status to sulfonamides
CPT/HCPCS: 99283; 96372; 72141; 72146; L3908; J1885

== ENCOUNTER → 2019-05-13 | Outpatient (CLI) | payer BC ==
--- NOTE | 2019-05-13 16:31 | RADIOLOGY REPORT (SQ) ---
EXAM DESCRIPTION: HAND RIGHT 3 VIEWS COMPLETED DATE/TIME: 05/13/2019 1:10 pm REASON FOR STUDY: PAIN IN RIGHT HAND M79.641 PAIN IN RIGHT HAND COMPARISON: None. EXAM PARAMETERS: NUMBER OF VIEWS: Three views. TECHNIQUE: AP, lateral and oblique radiographic images acquired of the right hand. LIMITATIONS: None. FINDINGS: MINERALIZATION: Normal. BONES: No acute fracture or dislocation. No worrisome bone lesions. JOINTS: No effusions. SOFT TISSUES: No soft tissue swelling. No foreign body. OTHER: No other significant finding. IMPRESSION: NEGATIVE STUDY OF THE RIGHT HAND. NO RADIOGRAPHIC EVIDENCE OF ACUTE INJURY. TECHNICAL DOCUMENTATION: JOB ID: [id number] [employer] All Rights Reserved Reading location - IP/workstation name: [email or web address]
== END ==
LOC: OD 12:55
PROVIDERS: ATTEND Nurse Practitioner Family
DX: M79.641 Pain in right hand (principal)

== ENCOUNTER 2020-01-27 06:21 | Emergency (ER) | payer BC ==
--- NOTE | 2020-01-27 07:47 | ER Document Report ---
ED General - General Chief Complaint: Passed Out Prior to Arrival Stated Complaint: PASSED OUT AT HOME EMS RESPONDED Time Seen by Provider: 01/27/20 07:10 Primary Care Provider: TITO VAUGHN FNP-C [Primary Care Provider] - Follow up as needed TRAVEL OUTSIDE OF THE [place] IN LAST 30 DAYS: No - HPI Notes: Chief complaint: Syncope History of present illness: 44-year-old male seen at this time for evaluation of syncope. Patient notes that he has been doing a new diet routine with calorie restriction, low carbohydrate intake use of some type of an unknown dsdh-pmt-[id number] dietary supplement. He was getting up out of bed this morning when he suddenly felt weak and collapsed in the bedroom with momentary loss of consciousness. Struck bedroom furniture as he fell to the floor. says he was briefly unresponsive. She notes that he was diffusely diaphoretic. There were no tonic-clonic movements. He was immediately oriented he regained consciousness but complains of dull headache and some neck pain. Patient denies any chest pain or shortness of breath. He takes no prescription medications. He has had an appendectomy in the past with no other hospitalizations or surgery and is in good general health. History of allergy to sulfa drugs. Smokes occasional cigars. Rare alcohol intake. No drug use. 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 - Related Data Allergies/Adverse Reactions: Sulfa (Sulfonamide Antibiotics) Allergy (Verified 11/01/18 11:52) Past Medical History - General Information source: Patient, Relative, [facility] Records - Social History Smoking Status: Current Some Day Smoker Frequency of alcohol use: Rare Drug Abuse: None Family History: Reviewed & Not Pertinent - Past Medical History Cardiac Medical History: Reports: None Pulmonary Medical History: Reports: None Endocrine Medical History: Denies: Hx Diabetes Mellitus Type 1, Hx Diabetes Mellitus Type 2 Renal/ Medical History: Denies: Hx Peritoneal Dialysis Psychiatric Medical History: Reports: Hx Depression Past Surgical History: Reports: Hx Appendectomy, Hx Orthopedic Surgery - left finger Review of Systems - Review of Systems Notes: Constitutional: Negative for fever. HENT: Negative for sore throat. Eyes: Negative for visual changes. Cardiovascular: Negative for chest pain. Respiratory: Negative for shortness of breath. Gastrointestinal: Mild nausea. Negative for abdominal pain, vomiting or diarrhea. Genitourinary: Negative for dysuria. Musculoskeletal: Negative for back pain. Skin: Negative for rash. Neurological: As per HPI. 10 point ROS negative except as marked above and in HPI. Physical Exam - Vital signs Vitals: Temp Pulse Resp BP Pulse Ox 98.1 F 86 16 121/82 98 01/27/20 06:53 01/27/20 06:53 01/27/20 06:53 01/27/20 06:53 01/27/20 06:53 - Notes Notes: GENERAL: Well-developed well-nourished male approximately stated age appearing in no acute distress. SKIN: Good turgor no rashes. HEAD: Normocephalic atraumatic. EYES: PERRLA. EOMI. Conjunctivae and sclerae clear. EARS: CANALS AND TMS CLEAR. NOSE: CLEAR. MOUTH: Moist mucosa. Good dentition. No stridor or edema. No drooling. NECK: Mild posterior cervical tenderness midline. No step-off or crepitus. No masses or thyromegaly. No adenopathy. Carotids 2+ without bruits. No JVD. BACK: Symmetrical without tenderness. CHEST: Respirations unlabored. Breath sounds clear and symmetrical. HEART: Regular rhythm. No murmur gallop or rub. ABDOMEN: Soft nontender without masses, organomegaly or rebound. Bowel sounds normally active. No bruits. GENITALIA: Deferred. EXTREMITIES: No edema. No calf tenderness. Cap refill less than 1.5 seconds. Dorsalis pedis and posterior tibial pulses 3+ and symmetrical. NEUROLOGICAL: GCS 15. Alert and oriented x3. Fluent speech. Cranial nerves II through XII intact. Sensorimotor and cerebellar normal. Normal tone. PSYCHIATRIC: Appropriate affect. Course - Re-evaluation Re-evalutation: 01/27/20 11:23 Previously healthy male seen for syncopal episode associated with a self prescribed diet plan he is initiated. He had a negative noncontrast CT of head and C-spine. Troponin normal. Comprehensive metabolic profile normal. Urinalysis showed some ketones and was otherwise unremarkable. Urine drug screen negative. CBC normal. EKG showed no acute changes. Patient was hydrated with 2 L of normal saline here. Vital signs were stable and he was not orthostatic. He feels much better and wants to go home. I advised him to refrain from the dietary program and increase oral fluids. 3-day work note and he is to follow-up with primary care physician. Reviewed red flag symptoms and he understands to return here for new or worsening problems. Findings, clinical impression and plan of treatment have been discussed with patient/family. Understanding of current findings and recommendations has been acknowledged by them and there is agreement regarding disposition and follow-up. - Vital Signs Vital signs: Temp Pulse Resp BP Pulse Ox 98.1 F 73 17 134/82 H 99 01/27/20 06:53 01/27/20 10:03 01/27/20 09:57 01/27/20 10:03 01/27/20 09:57 - Laboratory Result Diagrams: 01/27/20 07:30 01/27/20 07:30 Laboratory results interpreted by me: 01/27/20 01/27/20 01/27/20 07:30 07:30 09:52 BUN 23 H Glucose 114 H Magnesium 2.4 H ALT 52 H Creatine Kinase 192 H Urine Ketones 20 H Ur Leukocyte Esterase TRACE H - Diagnostic Test Radiology reviewed: Reports reviewed - Per radiologist: Negative noncontrast head CT. Negative noncontrast C-spine CT. - EKG Interpretation by Me Additional EKG results interpreted by me: 01/27/20 07:50 Twelve-lead EKG reviewed by me contemporaneously: 0717 hrs. Indication for study: Syncope Rhythm: Normal sinus Rate: 85 Intervals: Normal QRS axis: -[address]/T wave changes: None Comparison with prior tracing: No interval change compared with prior study of 12/04/2015. Interpretation: Normal EKG Discharge - Discharge Clinical Impression: Syncope and collapse Condition: Stable Disposition: HOME, SELF-CARE Additional Instructions: Temporarily discontinue your dietary/supplement routine and follow-up with your doctor within the next 3 to 5 days. You have been provided a work note for the next 3 days. Increase oral fluid intake. Return here as needed for new or worsening symptoms: Pain that is worsening or unimproved Uncontrolled vomiting High fever or shaking chills Overall worsening Forms: Return to Work Referrals: TITO VAUGHN FNP-C [Primary Care Provider] - Follow up as needed
[2020-01-27] MEDS: NORMAL SALINE 1000 ML 1,000 ML IV PRN ×2 (07:57→08:38)
[2020-01-27 08:08] LABS: ABSOLUTE LYMPHOCYTES (AUTO) 1.1 10^3/uL (0.5-4.7); ABSOLUTE MONOCYTES (AUTO) 0.4 10^3/uL (0.1-1.4); ABSOLUTE NEUT (AUTO) 5.1 10^3/uL (1.7-8.2); BASOPHILS % (AUTO) 0.2 % (0-2); EOSINOPHILS % (AUTO) 0.3 % (0-6); HEMATOCRIT 43.7 % (37.9-51.0); LYMPHOCYTES % (AUTO) 16.7 % (13-45); MEAN CORPUSCULAR HGB CONC 34.4 g/dL (32.0-36.0); MEAN CORPUSCULAR VOLUME 87 fl (80-97); MONOCYTES % (AUTO) 6.3 % (3-13); PLATELET COUNT 228 10^3/uL (150-450); RED BLOOD COUNT 5.01 10^6/uL (4.35-5.55); SEGMENTED NEUTROPHILS % (AUTO) 76.5 % (42-78); TOTAL CELLS COUNTED % (AUTO) 100 %; WHITE BLOOD COUNT 6.6 10^3/uL (4.0-10.5)
[2020-01-27 08:25] LABS: ALBUMIN 4.7 g/dL (3.5-5.0); ALKALINE PHOSPHATASE 86 U/L (38-126); ANION GAP 10 (5-19); ASPARTATE AMINO TRANSFERASE 33 U/L (17-59); BILIRUBIN,DIRECT 0.3 mg/dL (0.0-0.4); BILIRUBIN,TOTAL 0.8 mg/dL (0.2-1.3); BLOOD UREA NITROGEN 23 mg/dL (7-20); CALCIUM 9.2 mg/dL (8.4-10.2); CARBON DIOXIDE 22 mmol/L (22-30); CHLORIDE 106 mmol/L (98-107); CREATINE KINASE 192 U/L (55-170); GLUCOSE 114 mg/dL (75-110); POTASSIUM 4.7 mmol/L (3.6-5.0); TOTAL PROTEIN 7.7 g/dL (6.3-8.2)
[2020-01-27 08:29] LABS: ALCOHOL < 10 mg/dL (NONE DETECTED)
[2020-01-27 08:34] LABS: CREATINE KINASE MB 2.24 ng/mL (<4.55)
[2020-01-27] MEDS ORDERED: ACETAMINOPHEN 325 MG TABLET PO ONE (08:34)
--- NOTE | 2020-01-27 08:34 | RADIOLOGY REPORT (SQ) ---
EXAM DESCRIPTION: CT HEAD WITHOUT IMAGES COMPLETED DATE/TIME: 01/27/2020 8:12 am REASON FOR STUDY: head injury COMPARISON: None. TECHNIQUE: Axial images acquired through the brain without intravenous contrast. Images reviewed wi th bone, brain and subdural windows. Additional sagittal and coronal reconstructions were generated. Images stored on PACS. All CT scanners at this facility use dose modulation, iterative reconstruction, and/or weight based d osing when appropriate to reduce radiation dose to as low as reasonably achievable (ALARA). [facility]: Dose Right [facility]: CareDose [facility]: Dose Right [facility]: Teradose 4D [facility]: [employer] RADIATION DOSE: CT Rad equipment meets quality standard of care and radiation dose reduction techniq ues were employed. CTDIvol: 53.2 mGy. DLP: 991 mGy-cm. mGy. LIMITATIONS: None. FINDINGS: VENTRICLES: Normal size and contour. CEREBRUM: No masses. No hemorrhage. No midline shift. No evidence for acute infarction. Normal gra y/white matter differentiation. No areas of low density in the white matter. CEREBELLUM: No masses. No hemorrhage. No alteration of density. No evidence for acute infarction. EXTRAAXIAL SPACES: No fluid collections. No masses. ORBITS AND GLOBE: No intra- or extraconal masses. Normal contour of globe without masses. CALVARIUM: No fracture. PARANASAL SINUSES: No fluid or mucosal thickening. SOFT TISSUES: No mass or hematoma. OTHER: No other significant finding. IMPRESSION: NORMAL BRAIN CT WITHOUT CONTRAST. EVIDENCE OF ACUTE STROKE: NO. COMMENT: Quality ID # [id number]: Final reports with documentation of one or more dose reduction techniques (e.g., Automated exposure control, adjustment of the mA and/or kV according to patient size, use of iterative reconstruction technique) TECHNICAL DOCUMENTATION: JOB ID: [id number] 2010 [employer]- All Rights Reserved Reading location - IP/workstation name: [email or web address]
[2020-01-27 08:35] LABS: TROPONIN I < 0.012 ng/mL
[2020-01-27] MEDS ORDERED: ACETAMINOPHEN 325 MG TABLET ONE (08:35)
--- NOTE | 2020-01-27 08:39 | RADIOLOGY REPORT (SQ) ---
EXAM DESCRIPTION: CT CERVICAL SPINE WITHOUT IMAGES COMPLETED DATE/TIME: 01/27/2020 8:12 am REASON FOR STUDY: head injury COMPARISON: None. TECHNIQUE: Axial images acquired through the cervical spine without intravenous contrast. Images re viewed with lung, soft tissue and bone windows. Reconstructed coronal and sagittal MPR images review ed. Images stored on PACS. All CT scanners at this facility use dose modulation, iterative reconstruction, and/or weight based d osing when appropriate to reduce radiation dose to as low as reasonably achievable (ALARA). [facility]: Dose Right [facility]: CareDose [facility]: Dose Right [facility]: Teradose 4D [facility]: [employer] RADIATION DOSE: CT Rad equipment meets quality standard of care and radiation dose reduction techniq ues were employed. CTDIvol: 24.2 mGy. DLP: 525 mGy-cm. mGy. LIMITATIONS: None. FINDINGS: ALIGNMENT: Anatomic. MINERALIZATION: Normal. VERTEBRAL BODIES: No fractures or dislocation. DISCS: No significant disc disease. FACETS, LATERAL MASSES, POSTERIOR ELEMENTS: No fractures. No dislocation. No acute findings. HARDWARE: None in the spine. VISUALIZED RIBS: No fractures. LUNG APICES AND SOFT TISSUES: No significant or acute findings. OTHER: No other significant finding. IMPRESSION: NO ACUTE OR SIGNIFICANT FINDINGS IN THE CERVICAL SPINE. TECHNICAL DOCUMENTATION: JOB ID: [id number] Quality ID # [id number]: Final reports with documentation of one or more dose reduction techniques (e.g., Au tomated exposure control, adjustment of the mA and/or kV according to patient size, use of iterative reconstruction technique) 2010 [employer]- All Rights Reserved Reading location - IP/workstation name: [email or web address]
[2020-01-27 10:08] LABS: APPEARANCE,URINE CLEAR; BILIRUBIN,URINE NEGATIVE (NEGATIVE); COLOR,URINE YELLOW; GLUCOSE, URINE NEGATIVE (NEGATIVE); KETONES,URINE 20 mg/dL (NEGATIVE); LEUKOCYTE ESTERASE,URINE TRACE (NEGATIVE); NITRITE,URINE NEGATIVE (NEGATIVE); PROTEIN,URINE NEGATIVE (NEGATIVE); URINE SPECIFIC GRAVITY 1.015; UROBILINOGEN,URINE NEGATIVE mg/dL (<2.0)
[2020-01-27 10:28] LABS: URINE AMPHETAMINES SCREEN NEGATIVE; URINE BARBITURATES SCREEN NEGATIVE; URINE BENZODIAZEPINES SCREEN NEGATIVE; URINE COCAINE SCREEN NEGATIVE; URINE MARIJUANA (THC) SCREEN NEGATIVE; URINE METHADONE SCREEN NEGATIVE; URINE PHENCYCLIDINE SCREEN NEGATIVE
[2020-01-27 11:45] VITALS: BP 122/75
--- NOTE | 2020-01-27 21:37 | EKG REPORT ---
SEVERITY:- NORMAL ECG - SINUS RHYTHM : Confirmed by: Simran Schultz MD 27-Jan-2020 21:36:50
== END 2020-01-27 11:45 | disposition home or self-care (01) ==
LOC: ER 06:21
DX: R55 Syncope and collapse (principal); R51 Headache; M54.2 Cervicalgia; W19.XXXA Unspecified fall, initial encounter; Y93.89 Activity, other specified; R11.0 Nausea; F17.290 Nicotine dependence, other tobacco product, uncomplicated; Z88.2 Allergy status to sulfonamides
CPT/HCPCS: 93005; 99285; 96360; 96361; 36415; 82553; 80307 ×2; 82550; 83735; 85025; 80053; 81001; 84484; 70450; 72125; 93010; J7030

== ENCOUNTER → 2020-05-26 | Outpatient (CLI) | payer BC ==
[~2020-05-26] MED LIST: COVID-19 VACCINE (PFIZER)/PF 30 MCG/0.3 ML VIAL IM ONE; EPINEPHRINE INJ/PF 1 MG/1 ML AMPULE IM PRN
== END ==
LOC: EMPHEALTH 08:19
PROVIDERS: ATTEND Internal Medicine
DX: Z23 Encounter for immunization (principal)
CPT/HCPCS: 91300